=== PATIENT | female | born 1980 | race Caucasian/White ===

== ENCOUNTER 2017-06-19 23:16 | Inpatient (IN) | payer MEDICAID ==
[2017-06-20] MEDS: METOCLOPRAMIDE 10 MG INJ IV (01:38)
[2017-06-20 01:39] LABS: ADD MAN DIFF? NO
[2017-06-20] MEDS: SOD CHLORIDE 0.9% 1,000 ML IV (01:39)
[2017-06-20 01:40] LABS: ABNORMAL IP MESSAGE 1; BASOPHILS % 0.3 % (0.0-2.0); EOSINOPHILS # 0.1 10^3/ul (0.0-0.5); EOSINOPHILS % 1.8 % (0.0-7.0); HEMATOCRIT 28.3 % (37.0-47.0); HEMOGLOBIN 7.2 g/dl (12.0-16.0); LYMPHOCYTES # 2.2 10^3/ul (0.8-2.9); LYMPHOCYTES % 28.8 % (15.0-51.0); MEAN CORPUSCULAR HEMOGLOBIN 17.5 pg (29.0-33.0); MEAN CORPUSCULAR HGB CONC 25.4 g/dl (32.0-37.0); MEAN CORPUSCULAR VOLUME 68.9 fl (82.0-101.0); MONOCYTE # 0.6 10^3/ul (0.3-0.9); MONOCYTES % 7.1 % (0.0-11.0); NEUTROPHIL # 4.8 10^3/ul (1.6-7.5); NEUTROPHILS % 61.7 % (39.0-77.0); PLATELET COUNT 332 10^3/UL (140-415); RED BLOOD COUNT 4.11 10^6/ul (4.20-5.40); RED CELL DISTRIBUTION WIDTH 29.7 % (11.5-14.5)
[2017-06-20 01:40] LABS: WHITE BLOOD COUNT 7.7 10^3/ul (4.8-10.8)
[2017-06-20 01:42] LABS: POSITIVE DIFF @See below
[2017-06-20 01:57] LABS: INR 0.92; PROTIME 12.4 Sec (11.9-14.9)
[2017-06-20 01:58] LABS: PARTIAL THROMBOPLASTIN TIME 30.9 Sec (25.0-35.0)
[2017-06-20 02:04] LABS: ALANINE AMINOTRANSFERASE 41 IU/L (13-69); ALBUMIN 4.1 g/dl (3.3-4.9); ALBUMIN/GLOBULIN RATIO 1.13; ALKALINE PHOSPHATASE 136 IU/L (42-121); ANION GAP 17 (8-16); ASPARTATE AMINO TRANSFERASE 36 IU/L (15-46); BILIRUBIN,INDIRECT 0.2 mg/dl (0-1.1); BILIRUBIN,TOTAL 0.2 mg/dl (0.2-1.3); BLOOD UREA NITROGEN 20 mg/dl (7-20); CALCIUM 8.8 mg/dl (8.4-10.2); CARBON DIOXIDE 25 mmol/L (21-31); CHLORIDE 106 mmol/L (97-110); CREATININE 1.06 mg/dl (0.44-1.00); GLUCOSE 127 mg/dl (70-220); POTASSIUM 3.6 mmol/L (3.5-5.1); SODIUM 144 mmol/L (135-144); TOTAL PROTEIN 7.7 g/dl (6.1-8.1)
[2017-06-20 02:20] LABS: TROPONIN-I < 0.012 ng/ml (0.00-0.12)
[2017-06-20] MEDS: DIPHENHYDRAMINE 50 MG INJ IV (02:30)
[2017-06-20 04:59] LABS: IMMEDIATE SPIN CROSSMATCH 1 2
[2017-06-20 05:04] LABS: ADD UMIC YES; UR ASCORBIC ACID 40 mg/dL (NEGATIVE); UR BILIRUBIN (Dip) NEGATIVE (NEGATIVE); UR BLOOD (Dip) 2+ mg/dL (NEGATIVE); UR CLARITY SLIGHTLY CLOUDY (CLEAR); UR COLOR YELLOW (YELLOW); UR GLUCOSE (Dip) NEGATIVE (NEGATIVE); UR KETONES (Dip) NEGATIVE (NEGATIVE); UR LEUKOCYTE ESTERASE (Dip) NEGATIVE Leu/ul (NEGATIVE); UR NITRITE (Dip) NEGATIVE (NEGATIVE); UR RBC 27 /HPF (0-5); UR SPECIFIC GRAVITY (Dip) 1.019 (1.003-1.030); UR TOTAL PROTEIN (Dip) NEGATIVE (NEGATIVE); UR UROBILINOGEN (Dip) NEGATIVE (NEGATIVE); UR WBC 0 /HPF (0-5)
[2017-06-20] MEDS ORDERED: FENTAnyl 50 MCG/ML VIAL (11:27)
[2017-06-20] MEDS ORDERED: MIDAZOLAM 1 MG/ML 2 ML INJ (11:27)
[2017-06-20] MEDS ORDERED: PROPOFOL 20 ML (12:00)
[2017-06-20] MEDS ORDERED: LIDOCAINE 2% (SDV) 5 ML INJ (12:00)
[2017-06-20] MEDS ORDERED: ONDANSETRON 4 MG INJ (12:11)
[2017-06-20] MEDS ORDERED: CEFAZOLIN 1 GM INJ (12:11)
[2017-06-20] MEDS ORDERED: ONDANSETRON 4 MG INJ IV (12:30)
[2017-06-20] MEDS ORDERED: HYDROmorphONE (0.2 MG/ML) 10ML SYG IV ×2 (12:30)
[2017-06-20] MEDS ORDERED: DIPHENHYDRAMINE 50 MG INJ IV (12:30)
[2017-06-20] MEDS: MEPERIDINE 25 MG INJ IV (13:12)
[2017-06-20] MEDS: FENTAnyl 50 MCG/ML VIAL IV ×2 (13:31→13:39)
== END 2017-06-20 14:18 | disposition home or self-care (01) | DRG 743 ==
LOC: E/R 23:16 → REC 06-20 04:00
PROC: 0U5B8ZZ Destruction of Endometrium, Via Natural or Artificial Opening Endoscopic (ICD-10-PCS; principal; 2017-06-20 10:30)
PROC: 0UDB8ZZ Extraction of Endometrium, Via Natural or Artificial Opening Endoscopic (ICD-10-PCS; 2017-06-20 10:30)
PROC: 0UB98ZZ Excision of Uterus, Via Natural or Artificial Opening Endoscopic (ICD-10-PCS; 2017-06-20 10:30)
DX: N92.0 Excessive and frequent menstruation with regular cycle (principal); D64.9 Anemia, unspecified; R51 Headache; N93.8 Other specified abnormal uterine and vaginal bleeding; E66.9 Obesity, unspecified; Z68.35 Body mass index [BMI] 35.0-35.9, adult; N84.0 Polyp of corpus uteri
CPT/HCPCS: 36415; 36430; 76830; 80053; 81001; 81025; 84484; 85025; 85610; 85730; 86850; 86900; 86901; 86920; 88305; 93005; 96374; 99291-25

== ENCOUNTER 2018-06-30 19:18 | Inpatient (IN) | payer MEDICAID ==
[2018-06-30 20:52] LABS: ADD MAN DIFF? NO
[2018-06-30] MEDS: morphine 4 MG/ML VIAL IV (20:53)
[2018-06-30] MEDS: ONDANSETRON 4 MG INJ IV (20:53)
[2018-06-30] MEDS: SOD CHLORIDE 0.9% 1,000 ML IV (20:54)
[2018-06-30 20:55] LABS: BASOPHILS % 0.2 % (0.0-2.0); EOSINOPHILS # 0.1 10^3/ul (0.0-0.5); EOSINOPHILS % 0.5 % (0.0-7.0); HEMATOCRIT 38.2 % (37.0-47.0); HEMOGLOBIN 11.7 g/dl (12.0-16.0); LYMPHOCYTES # 2.7 10^3/ul (0.8-2.9); LYMPHOCYTES % 21.2 % (15.0-51.0); MEAN CORPUSCULAR HEMOGLOBIN 24.9 pg (29.0-33.0); MEAN CORPUSCULAR HGB CONC 30.6 g/dl (32.0-37.0); MEAN CORPUSCULAR VOLUME 81.3 fl (82.0-101.0); MEAN PLATELET VOLUME 11.4 fl (7.4-10.4); MONOCYTE # 0.7 10^3/ul (0.3-0.9); MONOCYTES % 5.1 % (0.0-11.0); NEUTROPHIL # 9.3 10^3/ul (1.6-7.5); NEUTROPHILS % 72.8 % (39.0-77.0); PLATELET COUNT 280 10^3/UL (140-415); RED CELL DISTRIBUTION WIDTH 15.8 % (11.5-14.5)
[2018-06-30 20:55] LABS: WHITE BLOOD COUNT 12.8 10^3/ul (4.8-10.8)
[2018-06-30 20:58] LABS: ADD UMIC YES; UR ASCORBIC ACID NEGATIVE (NEGATIVE); UR BILIRUBIN (Dip) NEGATIVE (NEGATIVE); UR BLOOD (Dip) 2+ mg/dL (NEGATIVE); UR CLARITY CLEAR (CLEAR); UR COLOR YELLOW (YELLOW); UR GLUCOSE (Dip) NEGATIVE (NEGATIVE); UR KETONES (Dip) NEGATIVE (NEGATIVE); UR LEUKOCYTE ESTERASE (Dip) NEGATIVE Leu/ul (NEGATIVE); UR MUCUS FEW /HPF (NONE SEEN); UR NITRITE (Dip) NEGATIVE (NEGATIVE); UR RBC 30 /HPF (0-5); UR SPECIFIC GRAVITY (Dip) 1.024 (1.003-1.030); UR TOTAL PROTEIN (Dip) NEGATIVE (NEGATIVE); UR UROBILINOGEN (Dip) 1+ mg/dL (NEGATIVE); UR WBC 0 /HPF (0-5)
[2018-06-30 21:15] LABS: ALANINE AMINOTRANSFERASE 30 IU/L (13-69); ALBUMIN 4.4 g/dl (3.3-4.9); ALBUMIN/GLOBULIN RATIO 1.15; ALKALINE PHOSPHATASE 142 IU/L (42-121); AMYLASE 82 U/L (11-123); ANION GAP 10 (5-13); ASPARTATE AMINO TRANSFERASE 28 IU/L (15-46); BILIRUBIN,INDIRECT 0.4 mg/dl (0-1.1); BILIRUBIN,TOTAL 0.4 mg/dl (0.2-1.3); BLOOD UREA NITROGEN 15 mg/dl (7-20); CALCIUM 9.3 mg/dl (8.4-10.2); CARBON DIOXIDE 26 mmol/L (21-31); CHLORIDE 105 mmol/L (97-110); CREATININE 0.81 mg/dl (0.44-1.00); Estimated GFR > 60 mL/min (>60); GLUCOSE 115 mg/dl (70-220); LIPASE 79 U/L (23-300); POTASSIUM 3.9 mmol/L (3.5-5.1); SODIUM 141 mmol/L (135-144); TOTAL PROTEIN 8.2 g/dl (6.1-8.1)
[2018-06-30] MEDS: IOHEXOL 300MG/ML 150 ML BTL (21:37)
[2018-06-30] MEDS: SOD CHLORIDE 0.9% 100 ML (21:37)
[2018-06-30 23:48] LABS: INR 0.91; PROTIME 12.4 Sec (11.9-14.9)
[2018-06-30 23:49] LABS: PARTIAL THROMBOPLASTIN TIME 32.4 Sec (23.0-35.0)
[2018-07-01] MEDS: AMPICILLIN/SULB 3 GM/NS (PMX) 100 ML IVPB (00:03)
[2018-07-01] MEDS: HYDROmorphONE 0.5 MG/0.5 ML SYG IV (00:13)
[2018-07-01] MEDS: SOD CHLORIDE 0.9% 1,000 ML IV ×2 (01:26→14:19)
[2018-07-01] MEDS ORDERED: BISACODYL (EC) 5 MG TAB PO (01:30)
[2018-07-01] MEDS ORDERED: NACL 0.9% 3 ML SYG IV (01:30)
[2018-07-01] MEDS ORDERED: ACETAMINOPHEN 325 MG TAB PO ×2 (01:30)
[2018-07-01] MEDS ORDERED: DOCUSATE SODIUM 100 MG CAP PO (01:30)
[2018-07-01] MEDS ORDERED: ONDANSETRON 4 MG INJ IV ×2 (01:30→18:30)
[2018-07-01 05:41] LABS: ADD MAN DIFF? NO
[2018-07-01 05:44] LABS: BASOPHILS % 0.1 % (0.0-2.0); EOSINOPHILS # 0.1 10^3/ul (0.0-0.5); EOSINOPHILS % 1.6 % (0.0-7.0); HEMATOCRIT 33.9 % (37.0-47.0); HEMOGLOBIN 10.5 g/dl (12.0-16.0); LYMPHOCYTES # 2.7 10^3/ul (0.8-2.9); MEAN CORPUSCULAR HEMOGLOBIN 25.4 pg (29.0-33.0); MEAN CORPUSCULAR VOLUME 81.9 fl (82.0-101.0); MEAN PLATELET VOLUME 11.5 fl (7.4-10.4); MONOCYTE # 0.5 10^3/ul (0.3-0.9); MONOCYTES % 6.5 % (0.0-11.0); NEUTROPHIL # 4.8 10^3/ul (1.6-7.5); NEUTROPHILS % 58.6 % (39.0-77.0); PLATELET COUNT 230 10^3/UL (140-415); RED BLOOD COUNT 4.14 10^6/ul (4.20-5.40); RED CELL DISTRIBUTION WIDTH 15.9 % (11.5-14.5)
[2018-07-01 05:44] LABS: WHITE BLOOD COUNT 8.2 10^3/ul (4.8-10.8)
[2018-07-01 06:20] LABS: ALANINE AMINOTRANSFERASE 30 IU/L (13-69); ALBUMIN 3.5 g/dl (3.3-4.9); ALBUMIN/GLOBULIN RATIO 1.16; ALKALINE PHOSPHATASE 104 IU/L (42-121); ANION GAP 7 (5-13); ASPARTATE AMINO TRANSFERASE 21 IU/L (15-46); BILIRUBIN,INDIRECT 0.5 mg/dl (0-1.1); BILIRUBIN,TOTAL 0.5 mg/dl (0.2-1.3); BLOOD UREA NITROGEN 12 mg/dl (7-20); CALCIUM 8.6 mg/dl (8.4-10.2); CARBON DIOXIDE 26 mmol/L (21-31); CHLORIDE 108 mmol/L (97-110); CHOL/HDL RATIO 4.2 RATIO; CHOLESTEROL 119 mg/dl (100-200); CREATININE 0.69 mg/dl (0.44-1.00); Estimated GFR > 60 mL/min (>60); GLUCOSE 103 mg/dl (70-220); HDL CHOLESTEROL 28 mg/dl (34-82); LDL CHOLESTEROL,CALCULATED 72 mg/dl; MAGNESIUM 2.3 mg/dl (1.7-2.5); POTASSIUM 3.7 mmol/L (3.5-5.1); SODIUM 141 mmol/L (135-144); TOTAL PROTEIN 6.5 g/dl (6.1-8.1); TRIGLYCERIDES 93 mg/dl (0-149)
[2018-07-01] MEDS: morphine 2 MG INJ IV ×2 (06:32→12:22)
[2018-07-01 07:40] LABS: HEMOGLOBIN A1C 5.8 % (0-5.9)
[2018-07-01] MEDS: PIPER-TAZO 3.375 GM IV (PMX) 100 ML IVPB ×2 (12:22→19:05)
[2018-07-01 13:48] LABS: IRON 24 ug/dl (35-150)
[2018-07-01 13:58] LABS: % IRON SATURATION 6 % SAT (22-52); TOTAL IRON BINDING CAPACITY 385 ug/dl (241-421)
[2018-07-01 14:25] LABS: FERRITIN 10.4 ng/ml (6.2-137.0)
[2018-07-01] MEDS ORDERED: ROCURONIUM 50 MG INJ (18:07)
[2018-07-01] MEDS ORDERED: LIDOCAINE 2% (SDV) 5 ML INJ (18:07)
[2018-07-01] MEDS ORDERED: CEFAZOLIN 1 GM INJ (18:07)
[2018-07-01] MEDS ORDERED: MIDAZOLAM 1 MG/ML 2 ML INJ (18:07)
[2018-07-01] MEDS ORDERED: PROPOFOL 20 ML (18:07)
[2018-07-01] MEDS ORDERED: ONDANSETRON 4 MG INJ (18:07)
[2018-07-01] MEDS ORDERED: HYDROmorphONE 1 MG/5 ML IV SYRINGE IV (18:30)
[2018-07-01] MEDS ORDERED: LABETALOL HCL 20MG INJ IV (18:30)
[2018-07-01] MEDS ORDERED: BUPIVACAINE 0.25%/EPI (SDV) 30 ML INJ (18:48)
[2018-07-01] MEDS ORDERED: BUPIVACAINE 0.5% (SDV) 30 ML INJ (18:49)
[2018-07-01] MEDS: LIDOCAINE 1%/EPI 30 ML INJ INJ (19:00)
[2018-07-01] MEDS: BUPIVACAINE 0.25% (STERILE-PAK) 30 ML INJ INJ (19:00)
[2018-07-01] MEDS ORDERED: SUGAMMADEX SODIUM 200 MG/2 ML VIAL IV (19:32)
[2018-07-01] MEDS: ONDANSETRON 4 MG INJ IV (20:32)
[2018-07-01] MEDS: HYDROmorphONE 1 MG/5 ML IV SYRINGE IV ×3 (20:33→20:58)
[2018-07-01] MEDS: D5-NS + KCL 20 MEQ 1,000 ML IV (21:27)
[2018-07-02] MEDS: morphine 2 MG INJ IV ×3 (00:01→18:02)
[2018-07-02] MEDS: PIPER-TAZO 3.375 GM IV (PMX) 100 ML IVPB ×4 (00:04→17:40)
[2018-07-02] MEDS: SOD CHLORIDE 0.9% 1,000 ML IV ×2 (02:16→14:46)
[2018-07-02 04:56] LABS: ADD MAN DIFF? NO
[2018-07-02 05:00] LABS: WHITE BLOOD COUNT 9.2 10^3/ul (4.8-10.8)
[2018-07-02 05:00] LABS: BASOPHILS % 0.1 % (0.0-2.0); EOSINOPHILS % 0.1 % (0.0-7.0); HEMATOCRIT 34.3 % (37.0-47.0); HEMOGLOBIN 10.4 g/dl (12.0-16.0); LYMPHOCYTES # 1.6 10^3/ul (0.8-2.9); LYMPHOCYTES % 17.3 % (15.0-51.0); MEAN CORPUSCULAR HEMOGLOBIN 24.8 pg (29.0-33.0); MEAN CORPUSCULAR HGB CONC 30.3 g/dl (32.0-37.0); MEAN CORPUSCULAR VOLUME 81.9 fl (82.0-101.0); MEAN PLATELET VOLUME 11.1 fl (7.4-10.4); MONOCYTE # 0.5 10^3/ul (0.3-0.9); MONOCYTES % 5.3 % (0.0-11.0); NEUTROPHIL # 7.1 10^3/ul (1.6-7.5); NEUTROPHILS % 77.1 % (39.0-77.0); PLATELET COUNT 232 10^3/UL (140-415); RED BLOOD COUNT 4.19 10^6/ul (4.20-5.40)
[2018-07-02 05:19] LABS: ALANINE AMINOTRANSFERASE 29 IU/L (13-69); ALBUMIN 3.8 g/dl (3.3-4.9); ALBUMIN/GLOBULIN RATIO 1.11; ALKALINE PHOSPHATASE 108 IU/L (42-121); ANION GAP 8 (5-13); ASPARTATE AMINO TRANSFERASE 21 IU/L (15-46); BILIRUBIN,INDIRECT 0.5 mg/dl (0-1.1); BILIRUBIN,TOTAL 0.5 mg/dl (0.2-1.3); BLOOD UREA NITROGEN 5 mg/dl (7-20); CALCIUM 8.6 mg/dl (8.4-10.2); CARBON DIOXIDE 28 mmol/L (21-31); CHLORIDE 105 mmol/L (97-110); CREATININE 0.68 mg/dl (0.44-1.00); Estimated GFR > 60 mL/min (>60); GLUCOSE 122 mg/dl (70-220); POTASSIUM 3.9 mmol/L (3.5-5.1); SODIUM 141 mmol/L (135-144); TOTAL PROTEIN 7.2 g/dl (6.1-8.1)
[2018-07-02 05:41] LABS: MAGNESIUM 2.2 mg/dl (1.7-2.5)
[2018-07-02 05:41] LABS: PHOSPHORUS 4.3 mg/dl (2.5-4.9)
[2018-07-02] MEDS: D5-NS + KCL 20 MEQ 1,000 ML IV ×2 (05:49→11:10)
[2018-07-02] MEDS: FERROUS FUMARATE (SR) TAB PO (10:21)
== END 2018-07-02 18:47 | disposition home or self-care (01) | DRG 343 ==
LOC: FTE 19:18 → MS1 23:42
PROC: 0DTJ4ZZ Resection of Appendix, Percutaneous Endoscopic Approach (ICD-10-PCS; principal; 2018-07-01 09:01)
DX: K35.80 Unspecified acute appendicitis (principal); E66.9 Obesity, unspecified; N94.89 Other specified conditions associated with female genital organs and menstrual cycle; Z68.38 Body mass index [BMI] 38.0-38.9, adult; D50.9 Iron deficiency anemia, unspecified; R73.03 Prediabetes
CPT/HCPCS: 36415; 71045; 74177; 80053; 80061; 81001; 81025; 82150; 82306; 82728; 83036; 83540; 83690; 83735; 84100; 84443; 85025; 85610; 85730; 87086; 88304; 93005; 96361; 96374; 96375; 99285-25

== ENCOUNTER 2018-08-26 19:44 | Emergency (ER) | payer MEDICAID ==
[2018-08-26] MEDS: KETOROLAC 15 MG INJ IV (22:21)
[2018-08-26] MEDS: ONDANSETRON 4 MG INJ IV (22:21)
[2018-08-26] MEDS: SOD CHLORIDE 0.9% 500 ML IV (22:21)
[2018-08-26 22:28] LABS: ADD MAN DIFF? NO
[2018-08-26 22:31] LABS: BASOPHILS % 0.2 % (0.0-2.0); EOSINOPHILS # 0.1 10^3/ul (0.0-0.5); EOSINOPHILS % 0.7 % (0.0-7.0); HEMATOCRIT 40.5 % (37.0-47.0); HEMOGLOBIN 12.3 g/dl (12.0-16.0); LYMPHOCYTES # 2.8 10^3/ul (0.8-2.9); LYMPHOCYTES % 23.1 % (15.0-51.0); MEAN CORPUSCULAR HEMOGLOBIN 24.9 pg (29.0-33.0); MEAN CORPUSCULAR HGB CONC 30.4 g/dl (32.0-37.0); MEAN PLATELET VOLUME 11.3 fl (7.4-10.4); MONOCYTE # 0.9 10^3/ul (0.3-0.9); MONOCYTES % 7.3 % (0.0-11.0); NEUTROPHIL # 8.3 10^3/ul (1.6-7.5); NEUTROPHILS % 68.4 % (39.0-77.0); PLATELET COUNT 322 10^3/UL (140-415); RED BLOOD COUNT 4.94 10^6/ul (4.20-5.40); RED CELL DISTRIBUTION WIDTH 16.9 % (11.5-14.5)
[2018-08-26 22:31] LABS: WHITE BLOOD COUNT 12.1 10^3/ul (4.8-10.8)
[2018-08-26 22:44] LABS: ADD UMIC YES; UR ASCORBIC ACID 20 mg/dL (NEGATIVE); UR BILIRUBIN (Dip) 1+ mg/dL (NEGATIVE); UR BLOOD (Dip) 3+ mg/dL (NEGATIVE); UR CLARITY SLIGHTLY CLOUDY (CLEAR); UR COLOR AMBER (YELLOW); UR GLUCOSE (Dip) NEGATIVE (NEGATIVE); UR KETONES (Dip) TRACE mg/dL (NEGATIVE); UR LEUKOCYTE ESTERASE (Dip) NEGATIVE Leu/ul (NEGATIVE); UR MUCUS MANY /HPF (NONE SEEN); UR NITRITE (Dip) NEGATIVE (NEGATIVE); UR RBC 155 /HPF (0-5); UR SPECIFIC GRAVITY (Dip) 1.041 (1.003-1.030); UR SQUAMOUS EPITHELIAL CELL FEW /HPF (FEW); UR TOTAL PROTEIN (Dip) 2+ mg/dl (NEGATIVE); UR UROBILINOGEN (Dip) 1+ mg/dL (NEGATIVE); UR WBC 9 /HPF (0-5)
[2018-08-26 22:48] LABS: ANION GAP 12 (5-13); BLOOD UREA NITROGEN 16 mg/dl (7-20); CALCIUM 9.5 mg/dl (8.4-10.2); CARBON DIOXIDE 25 mmol/L (21-31); CHLORIDE 104 mmol/L (97-110); CREATININE 0.74 mg/dl (0.44-1.00); Estimated GFR > 60 mL/min (>60); GLUCOSE 115 mg/dl (70-220); SODIUM 141 mmol/L (135-144)
== END 2018-08-27 02:32 | disposition home or self-care (01) ==
LOC: FTE 08-27 02:32
DX: N83.201 Unspecified ovarian cyst, right side (principal)
CPT/HCPCS: 36415; 74176; 76830; 76856; 80048; 81001; 81025; 85025; 96361; 96374; 96375; 99285-25